=== PATIENT | female | born 1970 | race Caucasian/White ===

== ENCOUNTER 2017-05-08 11:53 | Inpatient (IN) ==
[2017-05-08] MEDS ORDERED: ONDANSETRON 4 MG/2 ML VIAL IV STA (12:57)
[2017-05-08] MEDS ORDERED: METOCLOPRAMIDE 10 MG/2 ML VIAL IV STA (12:57)
[2017-05-08] MEDS ORDERED: LEVOFLOXACIN INJ 750 MG in PREMIX 1 EACH IV STA (12:57)
[2017-05-08] MEDS ORDERED: SODIUM CHLORIDE 0.9% 2,000 ML IV STA (12:57)
[2017-05-08] MEDS ORDERED: methylPREDNISolone SOD SUC 125 MG/2 ML VIAL IV STA (12:57)
[2017-05-08] MEDS ORDERED: ALBUTEROL/IPRATROPIUM 3 ML NEB RESP TX STA (12:57)
[2017-05-08 13:29] LABS: Basophils % 0.3 % (0.0-0.8); Eosinophils % 0.1 % (0.00-10.9); Hematocrit 25.2 VOL% (35.7-47.0); Hemoglobin 8.7 GM/DL (12.0-16.0); Immature Granulocytes % 0.6 %; Immature Granulocytes Absolute 0.08 #; Lymphocytes # 1.6 10*3/uL (1.4-4.0); Lymphocytes % 11.2 % (21.3-54.2); Mean Corpuscular HGB Conc 34.5 GM/DL (32-36); Mean Corpuscular Hemoglobin 28 PG (27-34); Mean Platelet Volume 11.2 FL (9.6-12.0); Monocytes # 0.8 10*3/uL (0.11-0.8); Monocytes % 5.6 % (1.7-12.7); Neutrophils # 11.8 10*3/uL (1.4-7.4); Neutrophils % 82.2 % (38.7-73.9); Platelet Count 177 T/CUMM (130-400); Red Blood Count 3.11 MC/CUMM (3.8-5.5); Red Cell Distribution Width 13.7 % (9.3-17.3); White Blood Count 14.4 T/CUMM (4-12)
[2017-05-08 13:41] LABS: Partial Thromboplastin Time 27.8 SECS (0-40)
[2017-05-08 13:48] LABS: Apearance,Urine CLOUDY (Clear); Bacteria,Urine Occasional /HPF (Few); Bilirubin,Urine Negative (Negative); Blood, Urine Negative (Negative); Glucose,Urine (UA) Negative (Negative); Hyaline Casts,Urine 28 /LPF (0-3); Ketones,Urine Negative (Negative); Nitrite,Urine Negative (Negative); Protein,Urine 100 MG/DL; RBC,Urine 16 /HPF (0-4); Urine Color Amber (Yellow); Urine Specific Gravity 1.019 (1.001-1.035); Urine Urobilinogen < 2.0 EU/DL (0.2-1.0); WBC,Urine 124 /HPF (0-6)
[2017-05-08 13:59] LABS: Lactic Acid 1.4 MMOL/L (0.4-2.0)
[2017-05-08 14:02] LABS: Alanine Aminotransferase 29 U/L (13-56); Alkaline Phosphatase 103 U/L (45-117); Aspartate Amino Transferase 30 U/L (0-37); Bilirubin,Total < 0.39 MG/DL (0.2-1.0); Blood Urea Nitrogen 85 MG/DL (7-18); Calcium 7.5 MG/DL (8.5-10.1); Glucose 241 MG/DL (74-106); Osmolality,Calculated 288.2 MOS/KG (273-304); Sodium 127 MMOL/L (136-145); Total Protein 6.4 G/DL (6.4-8.3); Troponin I Only < 0.015 NG/ML (0.00-0.045)
[2017-05-08] MEDS ORDERED: METOCLOPRAMIDE 10 MG/2 ML VIAL ONE (14:03)
[2017-05-08] MEDS ORDERED: TERBUTALINE 1 MG/1 ML VIAL SUBCUT ONE (14:03)
[2017-05-08] MEDS ORDERED: methylPREDNISolone SOD SUC 125 MG/2 ML VIAL ONE (14:04)
[2017-05-08] MEDS ORDERED: ONDANSETRON 4 MG/2 ML VIAL ONE (14:04)
[2017-05-08 14:08] LABS: Potassium 5.5 MMOL/L (3.5-5.1)
[2017-05-08] MEDS: TERBUTALINE 1 MG/1 ML VIAL SUBCUT SCH ×2 (14:09→15:10)
[2017-05-08] MEDS ORDERED: LEVOFLOXACIN INJ 150 ML IV ONE (14:55)
[2017-05-08] MEDS ORDERED: SODIUM CHLORIDE 0.9% 600 ML IV ONE (15:04)
[2017-05-08] MEDS ORDERED: ALBUTEROL 2.5 MG/3 ML NEB RESP TX PRN (15:04)
[2017-05-08] MEDS ORDERED: ACETAMINOPHEN 325 MG TABLET PO PRN (15:04)
[2017-05-08] MEDS ORDERED: DEXTROSE 50% 25 GM/50 ML VIAL IV PRN (15:14)
[2017-05-08] MEDS ORDERED: GLUCAGON 1 MG VIAL IM PRN (15:14)
[2017-05-08] MEDS ORDERED: SODIUM CHLORIDE 0.9% 1,000 ML IV SCH (15:30)
[2017-05-08 17:40] LABS: Barbiturates Screen,Urine Negative (Negative); Benzodiazepines Screen,Urine Positive (Negative); Cannabinoid Screen,Urine Negative (Negative); Opiate Screen,Urine Positive (Negative); Phencyclidine Screen,Urine Negative (Negative)
[2017-05-08 18:23] LABS: Microcytosis Slight; Platelet Estimate Normal
[2017-05-08] MEDS: INSULIN LISPRO 100 UNIT/ML SUBCUT SCH ×2 (19:03→22:13)
[2017-05-08 19:29] LABS: Troponin I Only < 0.015 NG/ML (0.00-0.045)
[2017-05-08] MEDS ORDERED: ALBUMIN 25% 25 GM in PREMIX 1 EACH IV SCH (20:00)
[2017-05-08] MEDS: ALBUMIN 25% 25 GM in PREMIX 1 EACH IV SCH (20:35)
[2017-05-08] MEDS: ALBUTEROL/IPRATROPIUM 3 ML NEB RESP TX SCH (20:58)
[2017-05-08] MEDS: SODIUM BICARB INJ 100 MEQ in DEXTROSE 5% NACL 0.22% 1,000 ML IV SCH (21:11)
[2017-05-08] MEDS: miSOPROStol 200 MCG TABLET PO SCH (21:21)
[2017-05-08] MEDS: PIPERACILLIN/TAZOBACTAM 3,375 MG in SODIUM CHLORIDE 0.9% 100 ML IV SCH (22:13)
[2017-05-08 23:07] LABS: Albumin 2.9 G/DL (3.4-5.0); Calcium 6.4 MG/DL (8.5-10.1); Osmolality,Calculated 299.1 MOS/KG (273-304); Potassium 5.5 MMOL/L (3.5-5.1)
[2017-05-08] MEDS: NOREPINEPHRINE 8 MG in SODIUM CHLORIDE 0.9% 242 ML IV SCH (23:18)
[2017-05-09] MEDS: ALBUTEROL/IPRATROPIUM 3 ML NEB RESP TX SCH ×4 (01:18→18:30)
[2017-05-09] MEDS: ALBUMIN 25% 25 GM in PREMIX 1 EACH IV SCH ×2 (04:39→11:43)
[2017-05-09 06:25] LABS: Basophils % 0.1 % (0.0-0.8); Hematocrit 24.8 VOL% (35.7-47.0); Hemoglobin 8.1 GM/DL (12.0-16.0); Immature Granulocytes Absolute 0.11 #; Lymphocytes # 0.8 10*3/uL (1.4-4.0); Lymphocytes % 7.2 % (21.3-54.2); Mean Corpuscular HGB Conc 32.7 GM/DL (32-36); Mean Corpuscular Hemoglobin 28 PG (27-34); Mean Corpuscular Volume 84.1 FL (87-102); Mean Platelet Volume 11.5 FL (9.6-12.0); Monocytes # 0.2 10*3/uL (0.11-0.8); Monocytes % 1.9 % (1.7-12.7); Neutrophils # 10.2 10*3/uL (1.4-7.4); Neutrophils % 89.8 % (38.7-73.9); Platelet Count 175 T/CUMM (130-400); Red Blood Count 2.95 MC/CUMM (3.8-5.5); Red Cell Distribution Width 13.6 % (9.3-17.3); White Blood Count 11.3 T/CUMM (4-12)
[2017-05-09 06:46] LABS: Albumin 3.1 G/DL (3.4-5.0); Calcium 7.4 MG/DL (8.5-10.1); Osmolality,Calculated 304.7 MOS/KG (273-304); Potassium 4.6 MMOL/L (3.5-5.1)
[2017-05-09 06:54] LABS: Calcium 7.5 MG/DL (8.5-10.1); Osmolality,Calculated 305.5 MOS/KG (273-304); Potassium 4.6 MMOL/L (3.5-5.1)
[2017-05-09 06:55] LABS: Troponin I Only < 0.015 NG/ML (0.00-0.045)
[2017-05-09] MEDS: miSOPROStol 200 MCG TABLET PO SCH ×4 (08:06→20:59)
[2017-05-09] MEDS: PIPERACILLIN/TAZOBACTAM 3,375 MG in SODIUM CHLORIDE 0.9% 100 ML IV SCH ×2 (08:08→20:00)
[2017-05-09] MEDS: INSULIN LISPRO 100 UNIT/ML SUBCUT SCH ×4 (08:08→21:08)
[2017-05-09] MEDS: SODIUM BICARB INJ 100 MEQ in DEXTROSE 5% NACL 0.22% 1,000 ML IV SCH ×2 (08:10→20:12)
[2017-05-09] MEDS: PANTOPRAZOLE 40 MG TABLET PO SCH (08:19)
[2017-05-09] MEDS: NOREPINEPHRINE 8 MG in SODIUM CHLORIDE 0.9% 242 ML IV SCH (15:54)
[2017-05-09] MEDS ORDERED: PREGABALIN 75 MG CAPSULE PO SCH (17:17)
[2017-05-09] MEDS ORDERED: PANTOPRAZOLE 40 MG TABLET PO SCH (17:17)
[2017-05-09 18:09] LABS: ABG Base Excess -1.9 MMOL/L (-2.5-2.5); ABG HCO3 22.7 MMOL/L (20-26); ABG Oxygen Saturation 87.7 % (95-100); ABG PCO2 38.4 MM HG (35-48); ABG PH 7.383 (7.35-7.45); ABG PO2 54.2 MM HG (80-95); ABG TCO2 20.8 MMOL/L (23-27)
[2017-05-09] MEDS: sitaGLIPtin 25 MG TABLET PO SCH (18:16)
[2017-05-09] MEDS: ALPRAZolam 0.5 MG TABLET PO PRN ×2 (18:19→23:44)
[2017-05-09 19:10] LABS: Troponin I Only 0.049 NG/ML (0.00-0.045)
[2017-05-09] MEDS ORDERED: BUMETANIDE 2.5 MG/10 ML VIAL IV ONE (19:30)
[2017-05-09] MEDS: tiZANidine 4 MG TABLET PO PRN (20:59)
[2017-05-10] MEDS: ALBUTEROL/IPRATROPIUM 3 ML NEB RESP TX SCH ×6 (01:00→20:30)
[2017-05-10 03:49] LABS: Basophils % 0.1 % (0.0-0.8); Eosinophils % 0.1 % (0.00-10.9); Hematocrit 23.8 VOL% (35.7-47.0); Hemoglobin 8.1 GM/DL (12.0-16.0); Immature Granulocytes % 5.6 %; Immature Granulocytes Absolute 0.55 #; Lymphocytes # 1.1 10*3/uL (1.4-4.0); Lymphocytes % 10.8 % (21.3-54.2); Mean Corpuscular Hemoglobin 28 PG (27-34); Mean Corpuscular Volume 81.8 FL (87-102); Mean Platelet Volume 10.4 FL (9.6-12.0); Monocytes # 0.5 10*3/uL (0.11-0.8); NRBC # 0.02 10*3/uL; Neutrophils # 7.8 10*3/uL (1.4-7.4); Neutrophils % 78.4 % (38.7-73.9); Platelet Count 193 T/CUMM (130-400); Red Blood Count 2.91 MC/CUMM (3.8-5.5); Red Cell Distribution Width 14.2 % (9.3-17.3); White Blood Count 9.9 T/CUMM (4-12)
[2017-05-10 04:07] LABS: Albumin 3.1 G/DL (3.4-5.0); Calcium 8.1 MG/DL (8.5-10.1); Osmolality,Calculated 300.8 MOS/KG (273-304); Potassium 4.3 MMOL/L (3.5-5.1)
[2017-05-10 04:08] LABS: Calcium 8.2 MG/DL (8.5-10.1); Osmolality,Calculated 298.8 MOS/KG (273-304); Potassium 4.3 MMOL/L (3.5-5.1)
[2017-05-10 06:24] LABS: Band Neutrophils 3 % (0-10); Lymphocytes 10 % (20-55); Myelocytes 1 %; Segmented Neutrophils 85 % (50-85); Total Cells Counted 100
[2017-05-10 06:25] LABS: Anisocytosis 1+; Hypochromasia 1+; Platelet Estimate Normal
[2017-05-10] MEDS: INSULIN LISPRO 100 UNIT/ML SUBCUT SCH ×4 (07:46→20:18)
[2017-05-10] MEDS: PIPERACILLIN/TAZOBACTAM 3,375 MG in SODIUM CHLORIDE 0.9% 100 ML IV SCH ×2 (07:48→20:05)
[2017-05-10] MEDS: miSOPROStol 200 MCG TABLET PO SCH (07:52)
[2017-05-10] MEDS: sitaGLIPtin 25 MG TABLET PO SCH (08:03)
[2017-05-10] MEDS: PANTOPRAZOLE 40 MG TABLET PO SCH (08:03)
[2017-05-10] MEDS: ALPRAZolam 0.5 MG TABLET PO PRN ×3 (10:23→23:07)
[2017-05-10] MEDS ORDERED: buPROPion 100 MG TABLET PO SCH (13:30)
[2017-05-10] MEDS ORDERED: LEVOFLOXACIN INJ 500 MG in PREMIX 1 EACH IV SCH (15:00)
[2017-05-10] MEDS ORDERED: BUMETANIDE 2.5 MG/10 ML VIAL IV ONE (19:00)
[2017-05-10] MEDS: ONDANSETRON 4 MG/2 ML VIAL IV PRN (20:10)
[2017-05-10] MEDS: tiZANidine 4 MG TABLET PO PRN (23:07)
[2017-05-11] MEDS: ALBUTEROL/IPRATROPIUM 3 ML NEB RESP TX SCH ×6 (00:36→19:58)
[2017-05-11 05:15] LABS: Basophils % 0.2 % (0.0-0.8); Eosinophils # 0.1 10*3/uL (0.0-0.87); Eosinophils % 1.1 % (0.00-10.9); Hematocrit 27.6 VOL% (35.7-47.0); Immature Granulocytes % 8.7 %; Immature Granulocytes Absolute 0.71 #; Lymphocytes # 1.3 10*3/uL (1.4-4.0); Lymphocytes % 16.1 % (21.3-54.2); Mean Corpuscular HGB Conc 32.6 GM/DL (32-36); Mean Corpuscular Hemoglobin 27 PG (27-34); Mean Corpuscular Volume 83.6 FL (87-102); Mean Platelet Volume 10.1 FL (9.6-12.0); Monocytes # 0.5 10*3/uL (0.11-0.8); Monocytes % 6.1 % (1.7-12.7); NRBC # 0.02 10*3/uL; Neutrophils # 5.6 10*3/uL (1.4-7.4); Neutrophils % 67.8 % (38.7-73.9); Platelet Count 189 T/CUMM (130-400); Red Cell Distribution Width 14.3 % (9.3-17.3); White Blood Count 8.2 T/CUMM (4-12)
[2017-05-11 05:41] LABS: Band Neutrophils 4 % (0-10); Eosinophils 1 % (0-10); Giant Platelets Few; Hypochromasia 1+; Lymphocytes 15 % (20-55); Ovalocytes Slight; Platelet Estimate Normal; Segmented Neutrophils 75 % (50-85); Total Cells Counted 100
[2017-05-11 05:52] LABS: Calcium 8.6 MG/DL (8.5-10.1)
[2017-05-11] MEDS: PANTOPRAZOLE 40 MG TABLET PO SCH (08:31)
[2017-05-11] MEDS: sitaGLIPtin 25 MG TABLET PO SCH (08:31)
[2017-05-11] MEDS: INSULIN LISPRO 100 UNIT/ML SUBCUT SCH ×4 (08:32→21:02)
[2017-05-11] MEDS: PIPERACILLIN/TAZOBACTAM 3,375 MG in SODIUM CHLORIDE 0.9% 100 ML IV SCH ×2 (08:50→20:04)
[2017-05-11] MEDS: ALPRAZolam 0.5 MG TABLET PO PRN ×2 (08:55→18:17)
[2017-05-11] MEDS ORDERED: ERGOCALCIFEROL 50,000 UNIT CAPSULE PO SCH (13:30)
[2017-05-11 13:33] LABS: ABG Base Excess 4.7 MMOL/L (-2.5-2.5); ABG HCO3 28.6 MMOL/L (20-26); ABG Oxygen Saturation 97.4 % (95-100); ABG PCO2 44.2 MM HG (35-48); ABG PH 7.433 (7.35-7.45); ABG PO2 89.3 MM HG (80-95); ABG TCO2 26.9 MMOL/L (23-27); Pt O2 Delivery Device Venturi Mask
[2017-05-11] MEDS: ONDANSETRON 4 MG/2 ML VIAL IV PRN (20:04)
[2017-05-11] MEDS: tiZANidine 4 MG TABLET PO PRN (23:26)
[2017-05-12] MEDS: ALBUTEROL/IPRATROPIUM 3 ML NEB RESP TX SCH ×7 (00:20→23:45)
[2017-05-12 05:22] LABS: Basophils % 0.4 % (0.0-0.8); Eosinophils # 0.3 10*3/uL (0.0-0.87); Eosinophils % 3.1 % (0.00-10.9); Hematocrit 29.9 VOL% (35.7-47.0); Hemoglobin 9.6 GM/DL (12.0-16.0); Immature Granulocytes % 12.4 %; Immature Granulocytes Absolute 0.99 #; Lymphocytes # 1.4 10*3/uL (1.4-4.0); Lymphocytes % 17.6 % (21.3-54.2); Mean Corpuscular HGB Conc 32.1 GM/DL (32-36); Mean Corpuscular Hemoglobin 27 PG (27-34); Mean Corpuscular Volume 84.5 FL (87-102); Mean Platelet Volume 10.5 FL (9.6-12.0); Monocytes # 0.6 10*3/uL (0.11-0.8); Monocytes % 6.9 % (1.7-12.7); NRBC # 0.02 10*3/uL; Neutrophils # 4.8 10*3/uL (1.4-7.4); Neutrophils % 59.6 % (38.7-73.9); Platelet Count 193 T/CUMM (130-400); Red Blood Count 3.54 MC/CUMM (3.8-5.5); Red Cell Distribution Width 13.5 % (9.3-17.3)
[2017-05-12 05:43] LABS: Band Neutrophils 3 % (0-10); Eosinophils 6 % (0-10); Giant Platelets Few; Hypochromasia 1+; Lymphocytes 21 % (20-55); Myelocytes 1 %; Platelet Estimate Adequate; Segmented Neutrophils 62 % (50-85); Total Cells Counted 100
[2017-05-12 05:52] LABS: Calcium 8.7 MG/DL (8.5-10.1); Osmolality,Calculated 280.7 MOS/KG (273-304); Potassium 3.9 MMOL/L (3.5-5.1)
[2017-05-12] MEDS: sitaGLIPtin 25 MG TABLET PO SCH (09:03)
[2017-05-12] MEDS: INSULIN LISPRO 100 UNIT/ML SUBCUT SCH ×4 (09:03→21:12)
[2017-05-12] MEDS: PANTOPRAZOLE 40 MG TABLET PO SCH (09:03)
[2017-05-12] MEDS: LEVOFLOXACIN INJ 750 MG in PREMIX 1 EACH IV SCH (09:04)
[2017-05-12] MEDS: PIPERACILLIN/TAZOBACTAM 3,375 MG in SODIUM CHLORIDE 0.9% 100 ML IV SCH ×2 (11:20→21:02)
[2017-05-12] MEDS: ALPRAZolam 0.5 MG TABLET PO PRN ×2 (11:32→21:02)
[2017-05-12] MEDS: tiZANidine 4 MG TABLET PO PRN (16:42)
[2017-05-12] MEDS: ONDANSETRON 4 MG/2 ML VIAL IV PRN (16:44)
[2017-05-12] MEDS ORDERED: POLYETHYLENE GLYCOL POWDER 255 GM BOTTLE PO ONE (19:20)
[2017-05-13] MEDS: ALBUTEROL/IPRATROPIUM 3 ML NEB RESP TX SCH ×3 (03:42→11:45)
[2017-05-13 05:11] LABS: ABG Base Excess 3.2 MMOL/L (-2.5-2.5); ABG HCO3 27.3 MMOL/L (20-26); ABG Oxygen Saturation 98.1 % (95-100); ABG PCO2 43.5 MM HG (35-48); ABG TCO2 24.6 MMOL/L (23-27); Allen Test Positive; Pt O2 Delivery Device Venturi Mask
[2017-05-13] MEDS: PIPERACILLIN/TAZOBACTAM 3,375 MG in SODIUM CHLORIDE 0.9% 100 ML IV SCH ×2 (05:42→12:59)
[2017-05-13] MEDS: sitaGLIPtin 25 MG TABLET PO SCH (08:40)
[2017-05-13] MEDS: PANTOPRAZOLE 40 MG TABLET PO SCH (08:40)
[2017-05-13] MEDS: INSULIN LISPRO 100 UNIT/ML SUBCUT SCH ×2 (08:40→11:59)
[2017-05-13] MEDS: ALPRAZolam 0.5 MG TABLET PO PRN (08:43)
[2017-05-13] MEDS: LEVOFLOXACIN INJ 750 MG in PREMIX 1 EACH IV SCH (10:31)
[2017-05-13 12:40] VITALS: BP 132/79
== END 2017-05-13 14:15 | disposition home or self-care (01) | DRG 871 ==
LOC: N.ED 11:53 → N.EDINP 14:57 → N.CC 16:50 → N.5E 05-09 17:16 → N.CC 05-09 20:50 → N.2E 05-12 00:49